=== PATIENT | male | born 1985 ===

== ENCOUNTER 2017-10-27 10:25 | Emergency (ER) | payer OTHER ==
--- NOTE | 2017-10-27 10:37 | UC ---
Skin Complaint HPI - HPI Summary HPI Summary: Pt presents with growth to lower abdomen. He tells me that about 2 weeks ago he noticed a small lump underneath his skin just inferior to his umbilicus. Has been getting progressively larger and more painful. Has not done anything OTC for this. Denies fever, chills, night sweats, recent illness, abdominal pain, n/ v/d/c. - History of Current Complaint Time Seen by Provider: 10/27/17 10:37 Stated Complaint: SKIN ISSUE Hx Obtained From: Patient Onset/Duration: Gradual Onset Timing: Constant Onset Severity: Mild Current Severity: Mild Pain Intensity: 2 Pain Scale Used: 0-10 Numeric - Allergy/Home Medications Allergies/Adverse Reactions: Allergies Allergy/AdvReac Type Severity Reaction Status Date / Time No Known Allergies Allergy Verified 10/27/17 10:42 Review of Systems Constitutional: Negative Skin: Other - Lump lower abdomen Respiratory: Negative Cardiovascular: Negative Gastrointestinal: Negative Neurological: Negative Psychological: Negative All Other Systems Reviewed And Are Negative: Yes PMH/Surg Hx/FS Hx/Imm Hx Previously Healthy: Yes - Surgical History Surgical History: None - Family History Known Family History: Positive: None - Social History Occupation: Employed Full-time Lives: With Family Alcohol Use: None Substance Use Type: None Smoking Status (MU): Never Smoked Tobacco Physical Exam Triage Information Reviewed: Yes Appearance: Well-Appearing, No Pain Distress, Well-Nourished Vital Signs Reviewed: Yes Neck: Positive: Supple, Nontender, No Lymphadenopathy Respiratory: Positive: Lungs clear, Normal breath sounds, No respiratory distress, No accessory muscle use Cardiovascular: Positive: RRR, No Murmur, Pulses Normal Abdomen Description: Positive: Nontender, No Organomegaly, Soft. Negative: Bruit, Distended, Guarding, Pulsatile Mass Bowel Sounds: Positive: Present Neurological: Positive: Alert Psychological: Positive: Age Appropriate Behavior Skin: Positive: Other - Just inferior to the umbilicus there is a 7mm nodule with mild overlying erythema and mild TTP. No discharge, streaking, or induration. - Additional Comments No inguinal LAD. Course/Dx - Course Course Of Treatment: Abscess vs nodule - will cover him with Keflex and have him f/u with general surgery if this does not improve. - Diagnoses Provider Diagnoses: Skin abscess lower abdomen Discharge - Discharge Plan Condition: Stable Disposition: HOME Prescriptions: Cephalexin CAP* [Keflex CAP*] 500 mg PO BID #14 cap Patient Education Materials: Abscess (ED) Referrals: No Primary Care Phys,NOPCP [Primary Care Provider] - Tito Hughes MD [Medical Doctor] - If Needed Additional Instructions: If you develop a fever, shortness of breath, chest pain, new or worsening symptoms - please call your PCP or go to the ED. 1) If the area on your lower abdomen is still there in 10-14 days, please call the number below to schedule a follow up appointment with General Surgery.
== END 2017-10-27 10:57 | disposition home or self-care (01) ==
LOC: UCEAST 10:25
DX: L02.211 Cutaneous abscess of abdominal wall (principal)
CPT/HCPCS: 99202; G0463